=== PATIENT | male | born 1940 | race Caucasian/White ===

== ENCOUNTER 2019-01-13 16:40 | Inpatient (IN) ==
[2019-01-13 18:25] LABS: Basophils % 0.2 % (0.0-0.8); Eosinophils # 0.1 10*3/uL (0.0-0.87); Eosinophils % 0.5 % (0.00-10.9); Hematocrit 31.5 VOL% (42.0-52.0); Hemoglobin 9.9 GM/DL (14.0-18.0); Immature Granulocytes % 0.4 %; Immature Granulocytes Absolute 0.04 #; Lymphocytes # 2.4 10*3/uL (1.4-4.0); Lymphocytes % 22.7 % (21.2-54.2); Mean Corpuscular HGB Conc 31.4 GM/DL (32-36); Mean Platelet Volume 10.8 FL (9.6-12.0); Monocytes % 9.2 % (1.7-12.7); Platelet Count 246 T/CUMM (130-400); Red Blood Count 3.58 MC/CUMM (3.8-5.5); Red Cell Distribution Width 14.5 % (9.3-17.3); White Blood Count 10.6 T/CUMM (4-12)
[2019-01-13] MEDS ORDERED: LACTULOSE 20 GM/30 ML UDCUP PO PRN (19:03)
[2019-01-13] MEDS ORDERED: PROMETHAZINE 25 MG/1 ML VIAL IM PRN (19:03)
[2019-01-13] MEDS ORDERED: ACETAMINOPHEN 325 MG TABLET PO PRN (19:03)
[2019-01-13] MEDS: HYDROmorphone 2 MG/1 ML VIAL IV PRN (20:28)
[2019-01-13] MEDS: BELLADONNA/OPIUM 30 MG SUPP RECTAL PRN (20:29)
[2019-01-13] MEDS: ONDANSETRON 4 MG/2 ML VIAL IV PRN (21:24)
[2019-01-14 06:55] LABS: Calcium 8.3 MG/DL (8.5-10.1); Osmolality,Calculated 288.1 MOS/KG (273-304)
[2019-01-14 09:17] LABS: Hematocrit 30.2 VOL% (42.0-52.0)
[2019-01-14] MEDS: POLYETHYLENE GLYCOL POWDER 17 GM PACK PO SCH (09:35)
[2019-01-14] MEDS: ATENOLOL 50 MG TABLET PO SCH (20:50)
[2019-01-14] MEDS: ATORVASTATIN 80 MG TABLET PO SCH (20:51)
[2019-01-15 04:39] LABS: Basophils % 0.3 % (0.0-0.8); Eosinophils # 0.1 10*3/uL (0.0-0.87); Eosinophils % 1.4 % (0.00-10.9); Hematocrit 25.5 VOL% (42.0-52.0); Hemoglobin 7.8 GM/DL (14.0-18.0); Immature Granulocytes % 0.5 %; Immature Granulocytes Absolute 0.04 #; Lymphocytes % 22.8 % (21.2-54.2); Mean Corpuscular HGB Conc 30.6 GM/DL (32-36); Mean Corpuscular Volume 90.1 FL (87-102); Mean Platelet Volume 10.7 FL (9.6-12.0); Monocytes % 9.7 % (1.7-12.7); Neutrophils % 65.3 % (38.7-73.9); Platelet Count 202 T/CUMM (130-400); Red Blood Count 2.83 MC/CUMM (3.8-5.5); Red Cell Distribution Width 14.6 % (9.3-17.3); White Blood Count 8.6 T/CUMM (4-12)
[2019-01-15 05:06] LABS: Calcium 7.9 MG/DL (8.5-10.1)
[2019-01-15] MEDS: POLYETHYLENE GLYCOL POWDER 17 GM PACK PO SCH (09:08)
[2019-01-15] MEDS: ATENOLOL 50 MG TABLET PO SCH ×2 (09:08→22:24)
[2019-01-15] MEDS: TRIAMTERENE/HCTZ 37.5-25 MG CAPSULE PO SCH (09:08)
[2019-01-15] MEDS ORDERED: SODIUM CHLORIDE 0.9% 1,000 ML IV PRN (11:41)
[2019-01-15 12:02] LABS: Hematocrit 27.1 VOL% (42.0-52.0); Hemoglobin 8.4 GM/DL (14.0-18.0)
[2019-01-15] MEDS: cefTRIAXone 1,000 MG in SYRINGE 1 EACH IV SCH (14:26)
[2019-01-15] MEDS: BACITRACIN OINT 0.9 GM PACK TOP SCH ×2 (14:27→22:24)
[2019-01-15] MEDS: ONDANSETRON 4 MG/2 ML VIAL IV PRN (22:24)
[2019-01-15] MEDS: ATORVASTATIN 80 MG TABLET PO SCH (22:24)
[2019-01-15] MEDS: HYDROmorphone 2 MG/1 ML VIAL IV PRN (22:25)
[2019-01-15 23:18] LABS: Hematocrit 30.1 VOL% (42.0-52.0); Hemoglobin 9.7 GM/DL (14.0-18.0)
[2019-01-16] MEDS: ONDANSETRON 4 MG/2 ML VIAL IV PRN ×2 (03:15→20:40)
[2019-01-16] MEDS: HYDROmorphone 2 MG/1 ML VIAL IV PRN ×2 (03:15→20:41)
[2019-01-16 04:46] LABS: Basophils % 0.3 % (0.0-0.8); Eosinophils # 0.1 10*3/uL (0.0-0.87); Eosinophils % 0.9 % (0.00-10.9); Hematocrit 31.4 VOL% (42.0-52.0); Hemoglobin 9.8 GM/DL (14.0-18.0); Immature Granulocytes % 0.5 %; Immature Granulocytes Absolute 0.05 #; Lymphocytes # 1.3 10*3/uL (1.4-4.0); Lymphocytes % 12.3 % (21.2-54.2); Mean Corpuscular HGB Conc 31.2 GM/DL (32-36); Mean Corpuscular Volume 87.2 FL (87-102); Mean Platelet Volume 10.8 FL (9.6-12.0); Monocytes % 10.3 % (1.7-12.7); Neutrophils % 75.7 % (38.7-73.9); Platelet Count 205 T/CUMM (130-400); Red Cell Distribution Width 14.5 % (9.3-17.3); White Blood Count 10.2 T/CUMM (4-12)
[2019-01-16 05:00] LABS: Calcium 8.1 MG/DL (8.5-10.1); Osmolality,Calculated 287.1 MOS/KG (273-304)
[2019-01-16] MEDS: TRIAMTERENE/HCTZ 37.5-25 MG CAPSULE PO SCH (08:12)
[2019-01-16] MEDS: BACITRACIN OINT 0.9 GM PACK TOP SCH ×2 (08:12→20:40)
[2019-01-16] MEDS: ATENOLOL 50 MG TABLET PO SCH ×2 (08:12→20:40)
[2019-01-16] MEDS: POLYETHYLENE GLYCOL POWDER 17 GM PACK PO SCH (08:12)
[2019-01-16] MEDS ORDERED: POTASSIUM CHLORIDE 20 MEQ TABLET PO ONE (08:47)
[2019-01-16] MEDS: cefTRIAXone 1,000 MG in SYRINGE 1 EACH IV SCH (13:46)
[2019-01-16] MEDS: ATORVASTATIN 80 MG TABLET PO SCH (20:40)
[2019-01-17] MEDS: ONDANSETRON 4 MG/2 ML VIAL IV PRN (02:40)
[2019-01-17] MEDS: HYDROmorphone 2 MG/1 ML VIAL IV PRN (02:41)
[2019-01-17 05:31] LABS: Basophils % 0.3 % (0.0-0.8); Eosinophils # 0.2 10*3/uL (0.0-0.87); Eosinophils % 1.6 % (0.00-10.9); Hematocrit 33.5 VOL% (42.0-52.0); Hemoglobin 10.4 GM/DL (14.0-18.0); Immature Granulocytes % 0.5 %; Immature Granulocytes Absolute 0.05 #; Lymphocytes % 19.9 % (21.2-54.2); Mean Corpuscular Volume 87.9 FL (87-102); Mean Platelet Volume 10.6 FL (9.6-12.0); Monocytes % 9.6 % (1.7-12.7); Neutrophils % 68.1 % (38.7-73.9); Platelet Count 230 T/CUMM (130-400); Red Blood Count 3.81 MC/CUMM (3.8-5.5); Red Cell Distribution Width 14.5 % (9.3-17.3); White Blood Count 9.8 T/CUMM (4-12)
[2019-01-17 05:46] LABS: Calcium 8.4 MG/DL (8.5-10.1); Osmolality,Calculated 284.3 MOS/KG (273-304)
[2019-01-17] MEDS: POLYETHYLENE GLYCOL POWDER 17 GM PACK PO SCH (09:05)
[2019-01-17] MEDS: TRIAMTERENE/HCTZ 37.5-25 MG CAPSULE PO SCH (09:05)
[2019-01-17] MEDS: ATENOLOL 50 MG TABLET PO SCH ×2 (09:05→20:53)
[2019-01-17] MEDS: BACITRACIN OINT 0.9 GM PACK TOP SCH ×2 (09:06→20:53)
[2019-01-17] MEDS: cefTRIAXone 1,000 MG in SYRINGE 1 EACH IV SCH (12:06)
[2019-01-17] MEDS: ATORVASTATIN 80 MG TABLET PO SCH (20:53)
[2019-01-18 05:08] LABS: Hemoglobin 10.3 GM/DL (14.0-18.0)
[2019-01-18] MEDS ORDERED: NEOMYCIN/POLYMYXIN IRRIG SOLN 1 ML AMP BLADDERIRR ONE (06:39)
[2019-01-18] MEDS ORDERED: ePHEDrine 50 MG/ML AMP ONE (08:28)
[2019-01-18] MEDS ORDERED: SEVOFLURANE 1 UNIT/15 MINUTE INH ONE (08:29)
[2019-01-18] MEDS ORDERED: MIDAZOLAM 2 MG/2 ML VIAL ONE (08:29)
[2019-01-18] MEDS ORDERED: ONDANSETRON 4 MG/2 ML VIAL ONE (08:29)
[2019-01-18] MEDS ORDERED: fentaNYL 100 MCG/2 ML VIAL ONE (08:29)
[2019-01-18] MEDS ORDERED: PROPOFOL 200 MG/20 ML VIAL IV ONE (08:29)
[2019-01-18] MEDS ORDERED: ACETAMINOPHEN 1,000 MG/100 ML VIAL IV ONE (08:29)
[2019-01-18] MEDS ORDERED: ETOMIDATE 40 MG/20 ML VIAL IV ONE (08:29)
[2019-01-18] MEDS: TRIAMTERENE/HCTZ 37.5-25 MG CAPSULE PO SCH (10:41)
[2019-01-18] MEDS: ATENOLOL 50 MG TABLET PO SCH ×2 (10:41→20:47)
[2019-01-18] MEDS: POLYETHYLENE GLYCOL POWDER 17 GM PACK PO SCH (10:41)
[2019-01-18] MEDS: BACITRACIN OINT 0.9 GM PACK TOP SCH ×2 (10:41→20:47)
[2019-01-18] MEDS: cefTRIAXone 1,000 MG in SYRINGE 1 EACH IV SCH ×2 (10:42→11:48)
[2019-01-18] MEDS: BELLADONNA/OPIUM 30 MG SUPP RECTAL PRN (20:47)
[2019-01-18] MEDS: ATORVASTATIN 80 MG TABLET PO SCH (20:47)
[2019-01-19 05:54] LABS: Basophils % 0.3 % (0.0-0.8); Eosinophils # 0.1 10*3/uL (0.0-0.87); Eosinophils % 1.3 % (0.00-10.9); Hematocrit 33.6 VOL% (42.0-52.0); Hemoglobin 10.4 GM/DL (14.0-18.0); Immature Granulocytes % 0.6 %; Immature Granulocytes Absolute 0.06 #; Lymphocytes # 1.5 10*3/uL (1.4-4.0); Mean Platelet Volume 10.5 FL (9.6-12.0); Monocytes % 10.8 % (1.7-12.7); Platelet Count 266 T/CUMM (130-400); Red Blood Count 3.82 MC/CUMM (3.8-5.5); Red Cell Distribution Width 14.2 % (9.3-17.3); White Blood Count 9.5 T/CUMM (4-12)
[2019-01-19 06:05] LABS: Calcium 8.7 MG/DL (8.5-10.1); Osmolality,Calculated 280.5 MOS/KG (273-304)
[2019-01-19] MEDS: BACITRACIN OINT 0.9 GM PACK TOP SCH ×2 (09:00→20:27)
[2019-01-19] MEDS: POLYETHYLENE GLYCOL POWDER 17 GM PACK PO SCH (09:00)
[2019-01-19] MEDS: ATENOLOL 50 MG TABLET PO SCH ×2 (09:00→20:27)
[2019-01-19] MEDS: TRIAMTERENE/HCTZ 37.5-25 MG CAPSULE PO SCH (09:00)
[2019-01-19] MEDS: cefTRIAXone 1,000 MG in SYRINGE 1 EACH IV SCH ×2 (09:01→11:19)
[2019-01-19] MEDS: ZALEPLON 5 MG CAPSULE PO PRN (20:27)
[2019-01-19] MEDS: ATORVASTATIN 80 MG TABLET PO SCH (20:27)
[2019-01-20] MEDS: TRIAMTERENE/HCTZ 37.5-25 MG CAPSULE PO SCH (09:23)
[2019-01-20] MEDS: BACITRACIN OINT 0.9 GM PACK TOP SCH ×2 (09:23→20:22)
[2019-01-20] MEDS: POLYETHYLENE GLYCOL POWDER 17 GM PACK PO SCH (09:23)
[2019-01-20] MEDS: ATENOLOL 50 MG TABLET PO SCH ×2 (09:23→20:22)
[2019-01-20] MEDS ORDERED: FAMOTIDINE 20 MG TABLET PO ONE (10:53)
[2019-01-20] MEDS: cefTRIAXone 1,000 MG in SYRINGE 1 EACH IV SCH (12:26)
[2019-01-20] MEDS: ATORVASTATIN 80 MG TABLET PO SCH (20:22)
[2019-01-20] MEDS: ZALEPLON 5 MG CAPSULE PO PRN (20:24)
[2019-01-21] MEDS ORDERED: DIAZEPAM 5 MG TABLET PO ONE (06:00)
[2019-01-21] MEDS ORDERED: FAMOTIDINE 20 MG TABLET PO ONE (06:00)
[2019-01-21] MEDS: POLYETHYLENE GLYCOL POWDER 17 GM PACK PO SCH (09:53)
[2019-01-21] MEDS: BACITRACIN OINT 0.9 GM PACK TOP SCH ×2 (09:53→21:22)
[2019-01-21] MEDS: TRIAMTERENE/HCTZ 37.5-25 MG CAPSULE PO SCH (09:57)
[2019-01-21] MEDS: ATENOLOL 50 MG TABLET PO SCH ×2 (09:57→21:21)
[2019-01-21] MEDS ORDERED: fentaNYL 100 MCG/2 ML VIAL ONE (13:36)
[2019-01-21] MEDS ORDERED: PROPOFOL 200 MG/20 ML VIAL IV ONE (13:36)
[2019-01-21] MEDS ORDERED: SEVOFLURANE 1 UNIT/15 MINUTE INH ONE (13:36)
[2019-01-21] MEDS ORDERED: ETOMIDATE 40 MG/20 ML VIAL IV ONE (13:37)
[2019-01-21] MEDS ORDERED: ONDANSETRON 4 MG/2 ML VIAL ONE ×2 (13:37→13:42)
[2019-01-21] MEDS ORDERED: PHENYLEPHRINE 1 MG/10 ML SYRINGE IV ONE (13:37)
[2019-01-21] MEDS ORDERED: ROCURONIUM 100 MG/10 ML VIAL IV ONE (13:37)
[2019-01-21] MEDS ORDERED: GLYCOPYRROLATE 0.4 MG/2 ML VIAL ONE (13:38)
[2019-01-21] MEDS ORDERED: NEOSTIGMINE 10 MG/10 ML VIAL ONE (13:38)
[2019-01-21] MEDS ORDERED: HYDROmorphone 2 MG/1 ML VIAL ONE (13:42)
[2019-01-21] MEDS ORDERED: ONDANSETRON 4 MG/2 ML VIAL IV PRN (13:46)
[2019-01-21] MEDS ORDERED: HYDROmorphone 2 MG/1 ML VIAL IV PRN (13:46)
[2019-01-21] MEDS: cefTRIAXone 1,000 MG in SYRINGE 1 EACH IV SCH (15:48)
[2019-01-21] MEDS: ATORVASTATIN 80 MG TABLET PO SCH (21:21)
[2019-01-21] MEDS: ZALEPLON 5 MG CAPSULE PO PRN (21:21)
[2019-01-22] MEDS: cefTRIAXone 1,000 MG in SYRINGE 1 EACH IV SCH (11:23)
[2019-01-22] MEDS: POLYETHYLENE GLYCOL POWDER 17 GM PACK PO SCH (11:23)
[2019-01-22] MEDS: TRIAMTERENE/HCTZ 37.5-25 MG CAPSULE PO SCH (11:23)
[2019-01-22] MEDS: ATENOLOL 50 MG TABLET PO SCH ×2 (11:23→22:20)
[2019-01-22] MEDS: BACITRACIN OINT 0.9 GM PACK TOP SCH ×2 (11:23→22:21)
[2019-01-22] MEDS: ZALEPLON 5 MG CAPSULE PO PRN (22:20)
[2019-01-22] MEDS: ATORVASTATIN 80 MG TABLET PO SCH (22:20)
[2019-01-23 05:22] LABS: Basophils % 0.2 % (0.0-0.8); Eosinophils # 0.1 10*3/uL (0.0-0.87); Eosinophils % 0.5 % (0.00-10.9); Hemoglobin 9.7 GM/DL (14.0-18.0); Immature Granulocytes % 0.9 %; Immature Granulocytes Absolute 0.12 #; Lymphocytes # 1.8 10*3/uL (1.4-4.0); Lymphocytes % 13.6 % (21.2-54.2); Mean Corpuscular HGB Conc 31.3 GM/DL (32-36); Mean Corpuscular Volume 84.2 FL (87-102); Mean Platelet Volume 11.2 FL (9.6-12.0); Monocytes % 10.5 % (1.7-12.7); Neutrophils % 74.3 % (38.7-73.9); Platelet Count 282 T/CUMM (130-400); Red Blood Count 3.68 MC/CUMM (3.8-5.5); Red Cell Distribution Width 13.7 % (9.3-17.3); White Blood Count 13.1 T/CUMM (4-12)
[2019-01-23 05:43] LABS: Calcium 8.3 MG/DL (8.5-10.1); Osmolality,Calculated 274.2 MOS/KG (273-304)
[2019-01-23 07:49] VITALS: BP 128/55
[2019-01-23] MEDS: POLYETHYLENE GLYCOL POWDER 17 GM PACK PO SCH (10:11)
[2019-01-23] MEDS: TRIAMTERENE/HCTZ 37.5-25 MG CAPSULE PO SCH (10:12)
[2019-01-23] MEDS: ATENOLOL 50 MG TABLET PO SCH (10:12)
[2019-01-23] MEDS: BACITRACIN OINT 0.9 GM PACK TOP SCH (10:12)
== END 2019-01-23 13:50 | disposition home or self-care (01) | DRG 663 ==
LOC: EDSEX → N.ED 16:40 → N.EDINP 17:52 → N.5E 18:16
PROVIDERS: ADMIT Urology; ATTEND Urology